=== PATIENT | female | born 1985 | race Caucasian/White ===

== ENCOUNTER 2019-04-12 11:08 | Emergency (ER) | payer OTHER, SELFPAY ==
[~2019-04-12] VITALS: Ht 167.6 cm; Wt 75.6 kg
--- NOTE | 2019-04-12 11:40 | NUR ---
EDMD TO BS FOR ASSESSMENT.
--- NOTE | 2019-04-12 11:57 | NUR ---
PT TO ED FOR HIGH HR. DENIES SOB. PT STATES SHE FIRST NOTICED ELEVATED HR ABOUT 1 WEEK AGO. PT CONNECTED TO MONITORS. TACHY 120S, ALL OTHER VSS ON RA. EDMD ASSESSMENT COMPLETE. IV ESTABLISHED AND LABS DRAWN. IVF INFUSING. PT CONNECTED TO ZOLL FOR ADENOSINE ADMIN. AWAITING RESULTS.
[2019-04-12] MEDS ORDERED: SODIUM CHLORIDE FLUSH 10ML SYR IVF ONE (12:00)
[2019-04-12] MEDS ORDERED: ADENOSINE 6 MG/2 ML IVPush ONE (12:00)
[2019-04-12] MEDS ORDERED: SODIUM CHLORIDE 0.9% 1,000ML IVBOLUS ONE ×2 (12:00→12:30)
[2019-04-12 12:13] LABS: BASOPHILS # (AUTO) 0.04 x10^3/uL (0-0.1); BASOPHILS % (AUTO) 0 % (0-1); EOSINOPHILS # (AUTO) 0.03 x10^3/uL (0-0.4); EOSINOPHILS % (AUTO) 0 % (1-7); LYMPHOCYTES # (AUTO) 1.96 x10^3/uL (1-3.4); LYMPHOCYTES % (AUTO) 18 % (22-44); MD NO; MEAN CORPUSCULAR HEMOGLOBIN 33.6 pg (27.0-34.8); MEAN CORPUSCULAR HGB CONC 33.5 g/dL (32.4-35.8); MEAN CORPUSCULAR VOLUME 100.1 fL (80-100); MEAN PLATELET VOLUME 8.2 fL (7.4-10.4); MONOCYTES # (AUTO) 0.66 x10^3/uL (0.2-0.8); MONOCYTES % (AUTO) 6 % (2-9); NEUTROPHILS # (AUTO) 8.55 x10^3/uL (1.8-6.8); NEUTROPHILS % (AUTO) 76 % (42-75); PLATELET COUNT 365 x10^3/uL (130-400); RED BLOOD COUNT 4.21 x10^6/uL (3.82-5.3); RED CELL DISTRIBUTION WIDTH 13.8 % (9.6-15.2)
[2019-04-12 12:18] LABS: ALBUMIN 3.4 g/dL (3.4-5.0); ANION GAP 9 mmol/L (5-15); CALCIUM 9.3 mg/dL (8.5-10.1); CHLORIDE 104 mmol/L (98-107); CREATININE 1.01 mg/dL (0.55-1.02)
[2019-04-12 13:19] VITALS: BP 121/75
--- NOTE | 2019-04-12 13:20 | NUR ---
pt resting in room. vss. 2nd liter ns complete. hr down to 85. no needs expressed. awaiting further ordrs.
[2019-04-12 13:42] LABS: TROPONIN I < 0.015 ng/mL (0.000-0.045)
== END 2019-04-12 14:23 | disposition home or self-care (01) ==
LOC: ED 14:20
DX: R00.0 Tachycardia, unspecified (principal); E86.0 Dehydration; R00.2 Palpitations
CPT/HCPCS: 36415; 71045; 80048; 82040; 84443; 84484; 84703; 85025; 85379; 93005; 96360; 99284; J7030

== ENCOUNTER 2019-04-13 22:20 | Emergency (ER) | payer OTHER ==
[~2019-04-13] VITALS: Ht 167.6 cm; Wt 75.0 kg
--- NOTE | 2019-04-13 22:32 | NUR ---
SHO MCHUGH FROM HOME WITH C/O SUBSTERNAL CP, NONRADIATING THAT STARTED AT 1930 TODAY, PT WAS HERE FOR SAME YESTERDAY, PT STATED SHE WAS "TREATED FOR DEHYDRATION AND SENT HOME'. EMS STATED ON ARRIVAL PT'S HR WAS 150, PT TOOK 324 ASPIRIN. MONITORS APPLIED, SIDERAILS UP X2, CALL LIGHT WITHIN REACH
[2019-04-13] MEDS ORDERED: MAALOX/HYOSCYAMINE/LIDOCAINE 45 ML BTL PO ONE (23:00)
[2019-04-13] MEDS ORDERED: MAALOX/HYOSCYAMINE/LIDOCAINE 45 ML BTL ONE (23:03)
--- NOTE | 2019-04-13 23:04 | NUR ---
PT MEDICATED PER MAR
--- NOTE | 2019-04-13 23:06 | NUR ---
PT RESTING CALMLY, DENIES NEEDS, MONITORS IN PLACE, CALL LIGHT WITHIN REACH. AWAITING LAB RESULT
[2019-04-13 23:17] LABS: TROPONIN I < 0.015 ng/mL (0.000-0.045)
[2019-04-13] MEDS ORDERED: LORazepam 2 MG/ML, 1ML ONE (23:34)
[2019-04-13 23:37] VITALS: BP 125/80
--- NOTE | 2019-04-13 23:37 | NUR ---
PT MEDICATED PER MAR
[2019-04-14] MEDS ORDERED: LORazepam 2 MG/ML, 1ML IVPush ONE
== END 2019-04-14 00:09 | disposition home or self-care (01) ==
LOC: ED 22:28
DX: R07.89 Other chest pain (principal); F17.200 Nicotine dependence, unspecified, uncomplicated; F41.1 Generalized anxiety disorder
CPT/HCPCS: 36415; 84484; 93005; 96374; 99284; J2060